=== PATIENT | female | born 1935 | race Caucasian/White ===

== ENCOUNTER 2018-09-30 05:24 | Day surgery (SDC) | payer MEDICARE, OTHER ==
[~2018-09-30] VITALS: Ht 170.2 cm; Wt 80.3 kg
[2018-09-30] VITALS (15 sets, daily range): BP systolic 115–158; BP diastolic 53–88
[2018-09-30] MEDS ORDERED: normal saline 1000ml 1,000 ML IV SCH (05:40)
[2018-09-30] MEDS ORDERED: MIDAZolam 1mg/ml 10ml vial IV PRN (05:40)
[2018-09-30] MEDS ORDERED: fentaNYL/PF 50MCG/1 ML 2ML syringe IV PRN (05:40)
[2018-09-30] MEDS ORDERED: APIX5TAB3 PO (05:53)
[2018-09-30] MEDS ORDERED: ROPI0.5T2 PO (05:53)
[2018-09-30] MEDS ORDERED: LEVO75TA7 PO (05:53)
[2018-09-30] MEDS ORDERED: ATOR20TA PO (05:53)
[2018-09-30] MEDS ORDERED: DOCU-28 PO (05:53)
[2018-09-30] MEDS ORDERED: PHEN100C4 PO ×2 (05:53)
[2018-09-30] MEDS ORDERED: ALEN70TA60 PO (05:53)
[2018-09-30] MEDS ORDERED: LISI10TA4 PO (05:53)
[2018-09-30] MEDS ORDERED: AMLO5TAB4 PO (05:53)
[2018-09-30] MEDS ORDERED: LACO200T2 PO (05:53)
[2018-09-30] MEDS ORDERED: HYDR-4069 PO (05:53)
[2018-09-30] MEDS ORDERED: FURO40TA4 PO (05:53)
[2018-09-30] MEDS ORDERED: METO100T7 PO (05:53)
[2018-09-30] MEDS ORDERED: LEVE250T4 PO (05:53)
[2018-09-30 06:38] LABS: BASOPHILS # (AUTO) 0.1 X10'3 (0-0.2); BASOPHILS % (AUTO) 0.7 % (0-1); EOSINOPHILS # (AUTO) 0.1 X10'3 (0-0.9); EOSINOPHILS % (AUTO) 1.4 % (0-6); HEMATOCRIT 33.1 % (35.0-45.0); HEMOGLOBIN 11.1 g/dl (12.0-16.0); LYMPHOCYTES # (AUTO) 2.9 X10'3 (1.1-4.8); LYMPHOCYTES % (AUTO) 29.5 % (21-51); MEAN CORPUSCULAR HEMOGLOBIN 29.2 PG (27.0-31.0); MEAN CORPUSCULAR HGB CONC 33.6 g/dL (33.0-36.5); MEAN CORPUSCULAR VOLUME 86.9 FL (78-98); MEAN PLATELET VOLUME 8.9 FL (7.4-10.4); MONOCYTES % (AUTO) 10.1 % (2-12); NEUTROPHILS # (AUTO) 5.7 X10'3 (1.8-7.7); NEUTROPHILS % (AUTO) 58.3 % (42-75); PLATELET COUNT 216 X10'3 (140-440); RED BLOOD COUNT 3.82 X10'6 (4.20-5.60); RED CELL DISTRIBUTION WIDTH 14.1 % (11.5-14.5); WHITE BLOOD COUNT 9.8 X10'3 (4.5-11.0)
[2018-09-30 07:07] LABS: ALANINE AMINOTRANSFERASE 27 U/L (12-78); ALBUMIN 3.6 G/DL (3.4-5.0); ALBUMIN/GLOBULIN RATIO 1.1 (1.1-1.5); ALKALINE PHOSPHATASE 72 IU/L (46-116); ANION GAP 10 (8-16); ASPARTATE AMINO TRANSFERASE 23 U/L (10-37); BILIRUBIN,TOTAL 0.1 MG/DL (0.1-1.0); BLOOD UREA NITROGEN 33 MG/DL (7-18); BUN/CREATININE RATIO 42.3 (6.6-38.0); CALCIUM 9.2 MG/DL (8.5-10.1); CHLORIDE 105 MMOL/L (99-107); CREATININE 0.78 MG/DL (0.40-0.90); GLUCOSE 127 MG/DL (70-104); POTASSIUM 4.5 MMOL/L (3.5-5.1); SODIUM 139 MMOL/L (135-145); TOTAL CARBON DIOXIDE 24.3 MMOL/L (24-32); eGFR 71 ML/MIN
== END 2018-09-30 09:40 | disposition home or self-care (01) ==
LOC: SSTAY O 05:24
PROVIDERS: ATTEND Internal Medicine Interventional Cardiology
DX: I48.1 Persistent atrial fibrillation (principal); I10 Essential (primary) hypertension; Z88.2 Allergy status to sulfonamides; Z79.899 Other long term (current) drug therapy; Z86.19 Personal history of other infectious and parasitic diseases
CPT/HCPCS: 36415; 80053; 85025; 85610; 92960; 93005; J2250; J3010; J7030

== ENCOUNTER 2019-06-03 13:37 | Day surgery (SDC) | payer MEDICARE ==
[2019-06-03] VITALS (9 sets, daily range): BP systolic 107–158; BP diastolic 51–84
[~2019-06-03] VITALS: Ht 167.6 cm; Wt 76.2 kg
[~2019-06-03 13:37] MED LIST: ALEN70TA60 PO; AMLO5TAB4 PO; APIX5TAB3 PO; ATOR20TA PO; DOCU-28 PO; FURO40TA4 PO; HYDR-4069 PO; LACO200T2 PO; LEVE250T4 PO; LEVO75TA7 PO; LISI10TA4 PO; METO100T7 PO; PHEN100C4 PO; ROPI0.5T2 PO
[2019-06-03] MEDS ORDERED: fentaNYL/PF 50MCG/1 ML 2ML syringe IV ONE (16:25)
[2019-06-03] MEDS ORDERED: normal saline 1000ml 1,000 ML IV SCH (16:25)
[2019-06-03] MEDS ORDERED: MIDAZolam 1mg/ml 10ml vial IV ONE (16:25)
[2019-06-03] MEDS ORDERED: MULT-955 PO (16:29)
[2019-06-03] MEDS ORDERED: AMLO2.5T2 PO (16:29)
[2019-06-03] MEDS ORDERED: VILA10TA PO (16:32)
== END 2019-06-03 18:30 | disposition home or self-care (01) ==
LOC: SSTAY O 13:37
PROVIDERS: ATTEND Internal Medicine Interventional Cardiology
DX: I48.0 Paroxysmal atrial fibrillation (principal); E78.5 Hyperlipidemia, unspecified; I35.1 Nonrheumatic aortic (valve) insufficiency; I10 Essential (primary) hypertension; Z86.73 Personal history of transient ischemic attack (TIA), and cerebral infarction without residual deficits; Z86.19 Personal history of other infectious and parasitic diseases; Z88.2 Allergy status to sulfonamides; Z79.899 Other long term (current) drug therapy
CPT/HCPCS: 92960; 93005; 94760

== ENCOUNTER 2024-09-24 12:54 | Outpatient (CLI) | payer MEDICARE, BC ==
[~2024-09-24 12:54] MED LIST changes: +AMLO2.5T2 PO; -AMLO5TAB4 PO; -DOCU-28 PO; -HYDR-4069 PO; +HYDR25TA90 PO; +LISI10TA27 PO; -LISI10TA4 PO; +MULT-955 PO; -ROPI0.5T2 PO; +ROPI0.5T37 PO; +VILA10TA PO
--- NOTE | 2024-09-24 14:35 | ELECTROCARDIOGRAPH REPORT ---
[facility] Test Date: 2024-09-24 Test Time: 14:32:10 Pat Name: FELICE MEJIA Department: PRE/OP CARDIOLOGY Patient ID: [id number] Room: Gender: F Fence Installer Helper: NONA : 1935 Requested By: ANGE COY Order Number: [id number] Reading MD: Dr. GENEVIEVE Leahy Measurements Intervals [place] Rate: 74 P: 0 UT: 0 QRS: 74 QRSD: 141 T: 57 QT: 407 QTc: 452 Interpretive Statements Atrial flutter Nonspecific intraventricular conduction delay Anterior infarct, old Minimal ST depression Electronically Signed On 09-24-2024 19:48:[address] GENEVIEVE Leahy Please click the below link to view image of tracing.
[2024-09-24 14:41] LABS: BASOPHILS % (AUTO) 0.5 % (0-1); EOSINOPHILS # (AUTO) 0.1 X10'3 (0-0.9); EOSINOPHILS % (AUTO) 1.4 % (0-6); LYMPHOCYTES # (AUTO) 1.8 X10'3 (1.1-4.8); LYMPHOCYTES % (AUTO) 27.4 % (21-51); MEAN CORPUSCULAR HEMOGLOBIN 29.9 PG (27.0-31.0); MEAN CORPUSCULAR HGB CONC 32.8 g/dL (33.0-36.5); MEAN CORPUSCULAR VOLUME 91.1 FL (78-98); MONOCYTES # (AUTO) 0.6 X10'3 (0-0.9); MONOCYTES % (AUTO) 9.4 % (2-12); NEUTROPHILS % (AUTO) 61.3 % (42-75); PRE OP HEMATOCRIT 37.9 % (35.0-45.0); PRE OP HEMOGLOBIN 12.4 g/dL (12.0-16.0); PRE OP PLATELET COUNT 189 X10'3 (140-440); PRE OP WHITE BLOOD COUNT 6.6 10'3 (4.8-10.8); RED BLOOD COUNT 4.16 X10'6 (4.20-5.60); RED CELL DISTRIBUTION WIDTH 16.3 % (11.5-14.5)
[2024-09-24 14:54] LABS: PRE OP PROTIME 29.1 SECONDS (9.0-12.0)
[2024-09-24 14:56] LABS: PRE OP INR 3.2 INR
[2024-09-24 15:03] LABS: ALBUMIN 3.3 G/DL (3.4-5.0); ALBUMIN/GLOBULIN RATIO 0.9 (1.1-1.5); ALKALINE PHOSPHATASE 83 IU/L (46-116); BLOOD UREA NITROGEN 22 MG/DL (7-18); BUN/CREATININE RATIO 29.7 (10.0-20.0); CALCIUM 8.4 MG/DL (8.5-10.1); CHLORIDE 107 MMOL/L (99-107); CREATININE 0.74 MG/DL (0.40-0.90); PRE OP ALT 31 U/L (30-65); PRE OP ANION GAP 7 (8-16); PRE OP AST 29 U/L (10-37); PRE OP BILIRUB, TOTAL 0.3 MG/DL (0.0-1.0); PRE OP GLUCOSE 97 MG/DL (70-104); PRE OP POTASSIUM 4.8 MMOL/L (3.4-5.1); PRE OP SODIUM 139 MMOL/L (135-145); TOTAL CARBON DIOXIDE 25.4 MMOL/L (24-32); TOTAL PROTEIN 6.8 G/DL (6.4-8.2); eGFR 74 ML/MIN
[2024-09-24] MEDS ORDERED: LEVE500T PO (15:41)
[2024-09-24] MEDS ORDERED: LISI5TAB22 PO (15:41)
[2024-09-24] MEDS ORDERED: SPIR25TA5 PO (15:46)
[2024-09-24] MEDS ORDERED: WARF4TAB69 PO (15:46)
[2024-09-24] MEDS ORDERED: CALCIUM/MAG (15:46)
--- NOTE | 2024-09-24 16:01 | RADIOLOGY REPORT ---
DI CHEST,TWO VIEWS CLINICAL HISTORY: PRE OP CXR AAO COMPARISON: None TECHNIQUE: Frontal and lateral view of the chest was obtained FINDINGS: Lines and Tubes: None Lungs: No focal consolidation. Pleura: No effusion. No pneumothorax. Cardiomediastinal contours:There is cardiomegaly. Bones: No acute osseous abnormality. Bony thorax demonstrated osteopenia. IMPRESSION: 1. .Mild cardiomegaly 2. No evidence of airspace consolidation no pulmonary venous congestion.
[2024-09-24 16:49] LABS: THYROID STIMULATING HORMONE 2.86 ulU/ml (0.34-4.50)
== END 2024-09-24 23:59 | disposition home or self-care (01) ==
LOC: LAB 12:54 → EDSTATUS 10-01 10:30
PROVIDERS: ATTEND Student in an Organized Health Care Education/Training Program
DX: I51.7 Cardiomegaly (principal); I48.91 Unspecified atrial fibrillation; I45.89 Other specified conduction disorders; I25.2 Old myocardial infarction
CPT/HCPCS: 36415; 71046; 80053; 84443; 85025; 85610; 85730; 86870; 86880; 86885; 86900; 86901; 86902; 86905; 86920; 86922; 93005; J7120